=== PATIENT | female | born 1965 | race Caucasian/White ===

== ENCOUNTER 2020-07-29 19:41 | Emergency (ER) | payer MEDICAID ==
[~2020-07-29] VITALS: Ht 167.6 cm; Wt 125.8 kg
[~2020-07-29 19:41] MED LIST: INSU100C SQ-INSULIN; INSU100V14 SQ; INSU100V14 SQ-INSULIN; INSU100V8 SQ; MAGNESIUM DR64 MG PO; METO25TA35 GT; NEOM28OI TP; NPH,100V SQ; OMEP-110 PO
[2020-07-29] MEDS ORDERED: METOCLOPRAMIDE 5 MG/ML, 2ML IVPush ONE (20:00)
[2020-07-29] MEDS ORDERED: SODIUM CHLORIDE 0.9% 1,000ML IVBOLUS ONE ×2 (20:00)
--- NOTE | 2020-07-29 20:27 | NUR ---
PIV PLACED. LABS DRAWN, IVF RUNNING PER DEC.
[2020-07-29] MEDS ORDERED: METOCLOPRAMIDE 5 MG/ML, 2ML ONE (20:28)
--- NOTE | 2020-07-29 20:47 | NUR ---
PT AMBULATED TO RESTROOM WITH STEADY GAIT TO PROVIDE URINE SAMPLE. UA COLLECTED AND SENT TO LAB.
[2020-07-29 20:57] LABS: BASOPHILS % (AUTO) 1 % (0-1); EOSINOPHILS % (AUTO) 0 % (1-7); LYMPHOCYTES % (AUTO) 10 % (22-44); MEAN CORPUSCULAR HEMOGLOBIN 26.8 pg (27.0-34.8); MEAN CORPUSCULAR HGB CONC 32.6 g/dL (32.4-35.8); MEAN PLATELET VOLUME 9.1 fL (7.4-10.4); MONOCYTES % (AUTO) 5 % (2-9); NEUTROPHILS % (AUTO) 84 % (42-75); PLATELET COUNT 244 x10^3/uL (130-400); RED BLOOD COUNT 5.13 x10^6/uL (3.82-5.3)
[2020-07-29 21:06] LABS: ALANINE AMINOTRANSFERASE 16 U/L (12-78); ALBUMIN 3.4 g/dL (3.4-5.0); ANION GAP 5 mmol/L (5-15); CALCIUM 8.6 mg/dL (8.5-10.1); CHLORIDE 109 mmol/L (98-107); CREATININE 1.15 mg/dL (0.55-1.02)
[2020-07-29 21:08] LABS: ALKALINE PHOSPHATASE 85 U/L (45-117); BILIRUBIN,TOTAL 0.8 mg/dL (0.2-1.0); TOTAL PROTEIN 7.4 g/dL (6.4-8.2)
[2020-07-29 21:12] LABS: MICROSCOPIC INDICATED
[2020-07-29 21:30] LABS: ACETONE, SERUM Trace (Negative)
--- NOTE | 2020-07-29 21:41 | NUR ---
PT STATES SHE FEELS BETTER AFTER MED AND IVF.
[2020-07-29 21:49] LABS: MD SCAN
--- NOTE | 2020-07-29 21:50 | NUR ---
ALL RESULST ARE BACK AT THIS TIME. CHART UP FOR RECHECK.
--- NOTE | 2020-07-29 22:05 | NUR ---
PT GIVEN WATER FOR PO CHALLENGE
[2020-07-29] MEDS ORDERED: ONDANSETRON 2MG/ML, 2ML ONE (22:14)
[2020-07-29 22:23] VITALS: BP 148/74
--- NOTE | 2020-07-29 22:24 | NUR ---
MEDS ADMIN PER DEC. PT HAS TOLLERATED WATER FOR PO CHALLENGE.
[2020-07-29] MEDS ORDERED: ONDANSETRON 2MG/ML, 2ML IVPush ONE (22:30)
[2020-07-29] MEDS ORDERED: NITROFURANTOIN (MACROBID) 100 MG CAPSULE PO ONE (22:30)
== END 2020-07-29 22:45 | disposition home or self-care (01) ==
LOC: ED 20:58
DX: N30.00 Acute cystitis without hematuria (principal); R11.2 Nausea with vomiting, unspecified; R19.7 Diarrhea, unspecified; E10.65 Type 1 diabetes mellitus with hyperglycemia; R10.84 Generalized abdominal pain
CPT/HCPCS: 36415; 80053; 81001; 82010; 82803; 83690; 85025; 87077; 87086; 96361; 96374; 96375; 99284; J2405; J2765; J7030

== ENCOUNTER 2021-04-17 13:58 | Emergency (ER) | payer MEDICAID ==
[~2021-04-17] VITALS: Ht 175.3 cm; Wt 126.6 kg
[~2021-04-17 13:58] MED LIST changes: +ATOR10TA9 PO; +INSU100V34 SQ; +LEVO75TA5 PO; +LISI10TA19 PO; +SULF-23 PO
--- NOTE | 2021-04-17 14:15 | NUR ---
EKG DONE IN TRIAGE.
[2021-04-17] MEDS ORDERED: FAMCICLOVIR 500 MG TABLET PO ONE (17:00)
[2021-04-17] MEDS ORDERED: NAPROXEN 500 MG TABLET PO ONE (17:00)
[2021-04-17] MEDS ORDERED: NAPROXEN 500 MG TABLET ONE (17:24)
[2021-04-17 18:09] VITALS: BP 141/84
== END 2021-04-17 18:11 | disposition home or self-care (01) ==
LOC: ED 14:28
DX: B02.9 Zoster without complications (principal); M79.642 Pain in left hand; E11.9 Type 2 diabetes mellitus without complications
CPT/HCPCS: 93005; 99283